=== PATIENT | male | born 1950 | race Caucasian/White ===

== ENCOUNTER → 2019-04-18 | Outpatient (CLI) | payer MEDICARE, OTHER ==
[~2019-04-18] MED LIST: CIPHYDOTSU RIGHTEAR
[2019-04-18 16:51] LABS: BASOPHILS ABSOLUTE AUTO 0.05 K/mm3 (0.00-0.23); BASOPHILS PERCENT AUTO 1 % (0-2); EOSINOPHILS PERCENT AUTO 3 % (0-6); Hematocrit 49.5 % (37.0-53.0); Hemoglobin 17.6 g/dL (13.5-17.5); IMMATURE GRAN ABSOLUTE AUTO 0.02 K/mm3 (0.00-0.10); IMMATURE GRAN PERCENT AUTO 0 % (0-1); LYMPHOCYTES PERCENT AUTO 30 % (21-46); MONOCYTES ABSOLUTE AUTO 0.46 K/mm3 (0.16-1.47); MONOCYTES PERCENT AUTO 7 % (4-13); Mean Corpuscular HGB 34.4 pg (26.0-34.0); Mean Corpuscular HGB Conc 35.6 g/dL (31.5-36.5); Mean Corpuscular Volume 97 fL (80-100); NEUTROPHILS ABSOLUTE AUTO 4.15 K/mm3 (1.96-9.15); NEUTROPHILS PERCENT AUTO 59 % (41-73); Platelet Count 185 K/mm3 (150-400); RDW Coefficient Variation 11.9 % (11.7-14.2); RDW Standard Deviation 42.5 fL (35.1-46.3); Red Blood Cell Count 5.12 M/mm3 (4.30-5.90); White Blood Cell Count 6.98 K/mm3 (4.00-11.30)
[2019-04-18 17:01] LABS: Albumin, Blood 3.2 g/dL (3.4-5.0); Albumin/Globulin Ratio 0.9 (0.8-1.8); Bilirubin, Total 0.7 mg/dL (0.1-1.0); Bun/Creatinine Ratio 20.1 (12.0-20.0); Creatinine, Blood 1.39 mg/dL (0.60-1.20); Globulin, Blood 3.7 g/dL (2.2-4.0); Potassium, Blood 4.2 mmol/L (3.5-5.5); Total Protein, Blood 6.9 g/dL (6.4-8.2)
[2019-04-18 18:09] LABS: Glucose, Blood 284 mg/dL (70-99)
== END | disposition home or self-care (01) ==
LOC: LAB EV 16:44 → LAB SHORT 16:44
PROVIDERS: Physician Assistant Medical
DX: E10.9 Type 1 diabetes mellitus without complications (principal); R63.4 Abnormal weight loss
CPT/HCPCS: 80053; 82962; 85025

== ENCOUNTER 2019-04-25 21:51 | Emergency (ER) | payer MEDICARE, OTHER ==
[~2019-04-25] VITALS: Ht 182.9 cm; Wt 68.0 kg
== END 2019-04-25 23:35 | disposition home or self-care (01) ==
LOC: ER 21:51
DX: M96.841 Postprocedural hematoma of a musculoskeletal structure following other procedure (principal); E10.9 Type 1 diabetes mellitus without complications; Z88.2 Allergy status to sulfonamides; Z88.8 Allergy status to other drugs, medicaments and biological substances; Z21 Asymptomatic human immunodeficiency virus [HIV] infection status
CPT/HCPCS: 99283

== ENCOUNTER → 2019-05-01 | Outpatient (CLI) | payer MEDICARE, OTHER ==
[2019-05-01 18:00] LABS: BASOPHILS ABSOLUTE AUTO 0.07 K/mm3 (0.00-0.23); BASOPHILS PERCENT AUTO 1 % (0-2); EOSINOPHILS ABSOLUTE AUTO 0.23 K/mm3 (0.00-0.68); EOSINOPHILS PERCENT AUTO 4 % (0-6); Hematocrit 47.9 % (37.0-53.0); Hemoglobin 16.3 g/dL (13.5-17.5); IMMATURE GRAN ABSOLUTE AUTO 0.02 K/mm3 (0.00-0.10); IMMATURE GRAN PERCENT AUTO 0 % (0-1); LYMPHOCYTES ABSOLUTE AUTO 1.51 K/mm3 (0.84-5.20); LYMPHOCYTES PERCENT AUTO 29 % (21-46); MONOCYTES ABSOLUTE AUTO 0.38 K/mm3 (0.16-1.47); MONOCYTES PERCENT AUTO 7 % (4-13); Mean Corpuscular HGB 33.7 pg (26.0-34.0); Mean Corpuscular Volume 99 fL (80-100); NEUTROPHILS ABSOLUTE AUTO 3.08 K/mm3 (1.96-9.15); NEUTROPHILS PERCENT AUTO 58 % (41-73); Platelet Count 200 K/mm3 (150-400); RDW Standard Deviation 43.8 fL (35.1-46.3); Red Blood Cell Count 4.83 M/mm3 (4.30-5.90); White Blood Cell Count 5.29 K/mm3 (4.00-11.30)
[2019-05-01 18:32] LABS: Albumin, Blood 3.1 g/dL (3.4-5.0); Albumin/Globulin Ratio 0.8 (0.8-1.8); Bilirubin, Total 0.4 mg/dL (0.1-1.0); Bun/Creatinine Ratio 18.1 (12.0-20.0); Creatinine, Blood 1.27 mg/dL (0.60-1.20); Free Thyroxine 1.28 ng/dL (0.70-1.60); Globulin, Blood 3.7 g/dL (2.2-4.0); Potassium, Blood 4.8 mmol/L (3.5-5.5); Thyroid Stimulating Hormone 0.765 uIU/mL (0.360-4.800); Total Protein, Blood 6.8 g/dL (6.4-8.2)
== END ==
LOC: LAB SHORT 14:41 → LAB EV 14:41
PROVIDERS: Nurse Practitioner Family
DX: E03.9 Hypothyroidism, unspecified (principal); L02.91 Cutaneous abscess, unspecified; E10.9 Type 1 diabetes mellitus without complications
CPT/HCPCS: 36415; 80053; 83036; 84439; 84443; 84481; 85025; 87070; 87075; 87077; 87147; 87186; 87205